=== PATIENT | female | born 1950 ===

== ENCOUNTER 2022-12-01 05:30 | Day surgery (SDC) | payer OTHER | END 2022-12-01 09:45 | disposition home or self-care (01) | LOC: AMB-ENDOS 05:30 | PROVIDERS: ATTEND Colon & Rectal Surgery | DX: K63.5 Polyp of colon (principal); K58.9 Irritable bowel syndrome, unspecified; K57.32 Diverticulitis of large intestine without perforation or abscess without bleeding; K92.1 Melena; Z20.822 Contact with and (suspected) exposure to COVID-19; Z88.6 Allergy status to analgesic agent; Z88.0 Allergy status to penicillin; K64.8 Other hemorrhoids ==